=== PATIENT | male | born 1960 | race Caucasian/White ===

== ENCOUNTER 2021-10-17 19:56 | Emergency (ER) | payer OTHER ==
[~2021-10-17] VITALS: Ht 167.6 cm; Wt 81.6 kg
[2021-10-17] MEDS ORDERED: AVAPRO300 MG (20:12)
[2021-10-17] MEDS ORDERED: MEDI-MECLIZINE25 MG PO (22:51)
== END 2021-10-17 22:57 | disposition home or self-care (01) ==
LOC: ER 19:56
DX: R42 Dizziness and giddiness (principal); R07.89 Other chest pain